=== PATIENT | female | born 1960 | race Caucasian/White ===

== ENCOUNTER 2016-09-23 16:30 | Emergency (ER) | payer OTHER, BC | END 2016-09-23 17:23 | disposition home or self-care (01) | LOC: ER 16:30 | DX: S66.317A Strain of extensor muscle, fascia and tendon of left little finger at wrist and hand level, initial encounter (principal); Z88.8 Allergy status to other drugs, medicaments and biological substances; W19.XXXA Unspecified fall, initial encounter | CPT/HCPCS: 99283 ==